=== PATIENT | male | born 1985 | race Two or more races ===

== ENCOUNTER 2019-09-28 21:09 | Emergency (ER) | payer OTHER, SELFPAY ==
[~2019-09-28] VITALS: Ht 170.2 cm; Wt 63.6 kg
[2019-09-29] MEDS ORDERED: IBUPROFEN 600 MG TABLET PO ONE (00:30)
[2019-09-29 01:51] VITALS: BP 117/79
== END 2019-09-29 02:45 | disposition home or self-care (01) ==
LOC: EMS 21:12
DX: F31.9 Bipolar disorder, unspecified (principal); F12.90 Cannabis use, unspecified, uncomplicated; Z98.890 Other specified postprocedural states; W01.0XXA Fall on same level from slipping, tripping and stumbling without subsequent striking against object, initial encounter; Y93.89 Activity, other specified; Y92.69 Other specified industrial and construction area as the place of occurrence of the external cause; Y99.0 Civilian activity done for income or pay